=== PATIENT | male | born 2000 | race Caucasian/White ===

== ENCOUNTER 2025-04-04 13:10 | Emergency (ER) | payer BC, SELFPAY ==
[2025-04-04 13:19] VITALS: BP 143/93; PULSE 59; RESP 16; TEMP 36.5; O2SAT 100; BMI 31.8
--- OUTSIDE RECORDS SUMMARY | 2025-04-04 13:22 | XMS_ITS | Encounter Summary ---
Author Organization [facility] Address [address] [place] [address] Care Team Providers Care Folder And Notcher Name Role Phone Reynold Alvarado PA-C Primary Care Provider + Sunil Arango MD Unavailable [phone] Reason for Visit * Reason Onset Date Comments Other 03/18/2020 Appointment issu es Encounter Details Date Type Department Care Team (Late st Contact Info) Description 03/18/2020 Telephone [facility] [address] [place] [address] Reynold Alvarado PA-C [address] [place] [address] Other (Appointment issues) Social History Tobacco Use Types Packs/Day Years Used Date Smoking Tobacco: Passive Smo ke Exposure - Never Smoker Smokeless Tobacco: Never Alcohol Use Standard Drinks/Week Comments No 0 (1 standard drink = 0.6 oz pur e alcohol) Sex and Gender Information Value Date Recorded Sex Assigned at Not on file Legal Sex Male 10:38 PM EST Gender Identity Not on file Sexual Orientation Not on file COVID-19 Exposure Response Date Recorded In the last month, have you been in contact with someone who was confirmed or suspected to have Coronavirus / COVID-19? No / Unsure 03/20/2020 2:42 PM EST documented as of this encounter Miscellaneous Notes * Telephone Encounter - Reynold Alvarado PA-C - 03/18/2020 9:55 PM EST Ok to schedule him on or Tuesday. * Telephone Encounter - Becca Ricci - 03/18/2020 5:32 PM EST Patient cannot reach office to schedule appointment. Please have front load trash truck driver reach out and schedule. [phone] Please advise documented in this encounter Plan of Treatment Not on file documented as of this encounter Visit Diagnoses Not on filedocumented in this encounter Additional Health Concerns Infection Onset Date Last Indicated Resolved Time Covid-19 (rule out) 03/30/2021 03/30/2021 04/13/19 22 10:12 PM EST documented as of this encounter Care Teams Folder And Notcher Relationship Specialty Start Date End Date Reynold Alvarado PA-C [address] [place] [address] PCP - General Physician Hook And Eye Attacher 12/15/17 01/28/25 Sunil Arango MD [address] [place], [place] [phone] Gastroenterology 05/08/19 documented as of this encounter
--- OUTSIDE RECORDS SUMMARY | 2025-04-04 13:22 | XMS_ITS | Encounter Summary ---
Author Organization [facility] Address [address] [place] [address] Care Team Providers Care Data Mining Analyst Name Role Phone Reynold Alvarado PA-C Primary Care Provider + Sunil Arango MD Unavailable [phone] Encounter Details Date Type Department Care Team (Late st Contact Info) Description 02/01/2019 Transcribe Orders Centralized Scheduling [address] [place] [address] Reynlod Alvarado PA-C [address] [place] [address] Social History Tobacco Use Types Packs/Day Years [...] on file Sexual Orientation Not on file documented as of this encounter Plan of Treatment Not on file documented as of this encounter Visit Diagnoses Not on filedocumented in this encounter Additional Health Concerns Infection Onset Date Last Indicated Resolved Time Covid-19 (rule out) 03/30/2021 03/30/2021 04/13/19 22 10:12 PM EST documented as of this encounter Care Teams Data Mining Analyst Relationship Specialty Start Date End Date Reynold Alvarado PA-C [address] [place], [place] [phone] PCP - General Physician Well Cleaner 12/15/17 01/28/25 Sunil Arango MD [address] [place] [phone] Gastroenterology 05/08/19 documented as of this encounter
--- OUTSIDE RECORDS SUMMARY | 2025-04-04 13:22 | XMS_ITS | Encounter Summary ---
Author Organization [facility] Address [address] [place] [address] Care Team Providers Care Sales Office Manager Name Role Phone Reynold Alvarado PA-C Primary Care Provider + Sunil Arango MD Unavailable Reason for Referral * Consultation (Routine) - Closed Specialty Diagnoses / Procedures Referred By Ben negrete Referred To Contact Gastroenterology Diagnoses Epigastric pain Functional diarrhea Gastroenteritis Jessie Ugalde MD Canty, Michael D., MD [address] [place] [address] Phone: tel: fax: Referral ID Status Reason Start Date Expiration Date Visits Re quested Visits Authorized [id number] Closed 03/20/2019 03/20/2020 1 1 Encounter Details Date Type Department Care Team (Latest Contact Info) Description 03/20/2019 Transcribe Orders [facility] [address] [place] [address] Jessie Ugalde MD Epigastric pain (Primary Dx); Functional diarrhea; Gastroenteritis Social History Tobacco Use Types Packs/Day Years [...] as of this encounter Plan of Treatment Scheduled Referrals Name Type Priority Associated Diagnoses Order Schedule Ambulatory referral to Gastroenterology Outpatient Referral Routine Epigastric pain Functional diarrhea Gastroenteritis Ordered: 03/20/2019 documented as of this encounter Visit Diagnoses Diagnosis Epigastric pain- Primary Abdominal pain, epigastric Functional diarrhea Gastroenteritis Other and unspecified noninfectious gastroenteritis and colitis documented in this encounter Additional Health Concerns Infection Onset Date Last Indicated Resolved Time Covid-19 (rule out) 03/30/2021 03/30/2021 04/13/19 10:12 PM EST documented as of this encounter Care Teams Sales Office Manager Relationship Specialty Start Date End Date Reynold Alvarado PA-C [address] [place] [address] PCP - General Physician Skirt Trimmer 12/15/17 01/28/25 Sunil Arango MD [address] [place] [phone] Gastroenterology 05/08/19 documented as of this encounter
--- OUTSIDE RECORDS SUMMARY | 2025-04-04 13:22 | XMS_ITS | Encounter Summary ---
Author Organization [facility] Address [address] [place] [address] Care Team Providers Care Flanger Name Role Phone Loyda Esparza DO Primary Care Provider Reynold Alvarado PA-C Primary Care Provider + Sunil Arango MD Unavailable [phone] Encounter Details Date Type Department Care Team (Late st Contact Info) Description 05/17/2007 Historical Encounter [facility] Roxana Lake MD [address] [place] [address] Social History Tobacco Use Types Packs/Day Years Used Date Smoking Tobacco: Never Assessed Sex and Gender Information Value Date Recorded [...] documented as of this encounter Care Teams Flanger Relationship Specialty Start Date End Date Loyda Esparza DO [address] [facility] [address] PCP - General 06/01/08 12/14/17 Reynold Alvarado PA-C [address] [place] [address] PCP - General Physician Strategic Development Manager 12/15/17 01/28/25 Sunil Arango MD [address] [place] [phone] Gastroenterology 05/08/19 documented as of this encounter
--- OUTSIDE RECORDS SUMMARY | 2025-04-04 13:22 | XMS_ITS | Encounter Summary ---
Author Organization [facility] Address [address] [place] [address] Care Team Providers Care Professor Of Communication Name Role Phone Reynold Alvarado PA-C Primary Care Provider + Sunil Arango MD Unavailable Encounter Details Date Type Department Care Team (Late st Contact Info) Description 01/22/2022 Orders Only [facility] Medicine [address] [place] [address] Reynold Alvarado PA-C [address] [place] [address] Hypothyroidism due to acquired atrophy of thyroid (Primary Dx) Social History Tobacco Use Types Packs/Day Years Used Date Smoking Tobacco: Never Smokeless Tobacco: Never Alcohol Use Standard Drinks/Week Comments No 0 (1 standard drink = 0.6 oz pur e alcohol) Sex and Gender Information Value Date Recorded Sex Assigned at Not on file Legal Sex Male 10:38 PM EST Gender Identity Not on file Sexual Orientation Not on file COVID-19 Exposure Response Date Recorded In the last 10 days, have yo u been in contact with someone who was confirmed or suspected to have Coronavirus/COVID-19? No / Unsure 01/15/2022 9:31 AM EDT documented as of this encounter Plan of Treatment Not on file documented as of this encounter Visit Diagnoses Diagnosis Hypothyroidism due to acquired atrophy of thyroid- Primary documented in this encounter Care Teams Professor Of Communication Relationship Specialty Start Date End Date Reynold Alvarado PA-C [facility] [place] [address] PCP - General Physician Bench Worker Helper 12/15/17 01/28/25 Sunil Arango MD [address] [place] [phone] Gastroenterology 05/08/19 documented as of this encounter
--- OUTSIDE RECORDS SUMMARY | 2025-04-04 13:22 | XMS_ITS | Encounter Summary ---
Author Organization [facility] Address [address] [place] [address] Care Team Providers Care [employer] Name Role Phone Reynold Alvarado PA-C Primary Care Provider + Sunil Arango MD Unavailable [phone] Encounter Details Date Type Department Care Team (Late st Contact Info) Description 01/31/2019 Transcribe Orders Centralized Scheduling [address] [place] [address] Priya Pabon RN Social History Tobacco Use Types Packs/Day Years [...] documented as of this encounter Care Teams [employer] Relationship Specialty Start Date End Date Reynold Alvarado PA-C [address] [place] [address] PCP - General Physician Instructional Design Manager 12/15/17 01/28/25 Sunil Arango MD [address] [place] [phone] Gastroenterology 05/08/19 documented as of this encounter
--- OUTSIDE RECORDS SUMMARY | 2025-04-04 13:22 | XMS_ITS | Encounter Summary ---
Author Organization [facility] Address [address] [place] [address] Care Team Providers Care Application Support Name Role Phone Loyda Esparza DO Primary Care Provider [phone] Reynold Alvarado PA-C Primary Care Provider + Sunil Arango MD Unavailable [phone] Encounter Details Date Type Department Care Team (Late st Contact Info) Description 05/12/2006 Historical Encounter Global Fazal Raymond, Mike Chandra MD [address], [place] [address] Social History Tobacco Use Types Packs/Day Years [...] documented as of this encounter Care Teams Application Support Relationship Specialty Start Date End Date Loyda Esparza DO [address] [place] [address] PCP - General 06/01/08 12/14/17 Reynold Alvarado PA-C [facility] [place] [address] PCP - General Physician Rate Marker 12/15/17 01/28/25 Sunil Arango MD [address] [place] [phone] Gastroenterology 05/08/19 documented as of this encounter
--- OUTSIDE RECORDS SUMMARY | 2025-04-04 13:22 | XMS_ITS | Encounter Summary ---
Author Organization [facility] Address [address] [place] [address] Care Team Providers Care Pill Maker Name Role Phone Reynold Alvarado PA-C Primary Care Provider + Sunil Arango MD Unavailable [phone] Reason for Visit * Reason Onset Date Comments Medication Problem 01/13/2021 Encounter Details Date Type Department Care Team (Late st Contact Info) Description 01/13/2021 Telephone [facility] Medicine [address] [place] [phone] Danielle Salcido MA Medication Problem Social History Tobacco Use Types Packs/Day Years [...] on file documented as of this encounter Miscellaneous Notes * Telephone Encounter - Reynold Alvarado PA-C - 01/13/2021 11:59 AM EDT noted * Telephone Encounter - Danielle Salcido MA - 01/13/2021 10:02 AM EDT Appointment scheduled on Tuesday 9 am. * Telephone Encounter - Reynold Alvarado PA-C - 01/13/2021 9:02 AM EDT Can see at 9 am on Tuesday. He has not been here since March and cancelled and did not reschedulehis September appointment. * Telephone Encounter - Danielle Salcido MA - 01/13/2021 8:56 AM EDT Patient's father called wanting to make him appointment to go over his anxiety medication. Patient states medication is working but its not working. Please advise. documented in this encounter Plan of Treatment Not on file documented as of this encounter Visit Diagnoses Not on filedocumented in this encounter Additional Health Concerns Infection Onset Date Last Indicated Resolved Time Covid-19 (rule out) 03/30/2021 03/30/2021 04/13/19 22 10:12 PM EST documented as of this encounter Care Teams Pill Maker Relationship Specialty Start Date End Date Reynold Alvarado PA-C [address] [place] [address] PCP - General Physician Table Tender 12/15/17 01/28/25 Sunil Arango MD [address] [place] [phone] Gastroenterology 05/08/19 documented as of this encounter
--- OUTSIDE RECORDS SUMMARY | 2025-04-04 13:22 | XMS_ITS | Encounter Summary ---
Author Organization [facility] Address [address] [place] [address] Care Team Providers Care Manager Graphic Name Role Phone Reynold Alvarado PA-C Primary Care Provider + Sunil Arango MD Unavailable [phone] Reason for Visit * Reason Onset Date Comments Medications Refill 11/14/2019 Encounter Details Date Type Department Care Team (Late st Contact Info) Description 11/14/[address] [facility] Medicine [address] [place] [address] Maged Abrams MA Medications Refill Social History Tobacco Use Types Packs/Day Years [...] Telephone Encounter - Reynold Alvarado PA-C - 11/14/2019 9:37 PM EDT done * Telephone Encounter - Maged Abrams MA - 11/14/2019 8:44 AM EDT Mother called for pt requesting refill on sertraline 25mg once daily. Pt has new insurance so need 90 day supply called to [facility]. documented in this encounter Plan of Treatment Not on file documented as of this encounter Visit Diagnoses Diagnosis Mood disorder- Primary Unspecified episodic mood disorder documented in this encounter Additional Health Concerns Infection Onset Date Last Indicated Resolved Time Covid-19 (rule out) 03/30/2021 03/30/2021 04/13/19 22 10:12 PM EST documented as of this encounter Care Teams Manager Graphic Relationship Specialty Start Date End Date Reynold Alvarado PA-C [address] [place] [address] PCP - General Physician Scholarship Counselor 12/15/17 01/28/25 Sunil Arango MD [address] [place] [phone] Gastroenterology 05/08/19 documented as of this encounter
--- OUTSIDE RECORDS SUMMARY | 2025-04-04 13:22 | XMS_ITS | Encounter Summary ---
Author Organization [facility] Address [address] [place] [address] Care Team Providers Care Return To Factory Clerk Name Role Phone Reynold Alvarado PA-C Primary Care Provider + Sunil Arango MD Unavailable [phone] Encounter Details Date Type Department Care Team (Latest Contact Info) Description 12/23/2018 Transcribe Orders X-ray [address] [place] [address] Reynold Alvarado PA-C [address] [place] [address] Ankle pain (Primary Dx) Social History Tobacco Use Types [...] on file documented as of this encounter Procedures Procedure Name Priority Date/Time Associated Diagnosis Comments XR ANKLE BILATERAL 3 VW OR MORE Routine 12/23/2018 12:48 PM EDT Ankle pain documented in this encounter Results * XR Ankle Bilateral 3 VW Or More (12/23/2018 12:48 PM EDT) Anatomical Region Laterality Modality leg, ankle, foot Computed Radiog dory 12/23/2018 Narrative 12/23/2018 12:56 [place] [address] Radiology PATIENT NAME: Stanford Ugalde MR#: [id number] PROCEDURE DATE: 12/23/2018 ROOM#: ORDERING PHYS: SELENE Nolasco Clinical history bilateral ankle pain status post trauma. Bilateral Ankle 3 Views There is no acute fracture, dislocation or destructive process. The visualized joint space appears unremarkable. No focal soft tissue abnormality. IMPRESSION: Negative study. This note is generated using voice recognition computer software. Inadverent errors may have occurred while dictating note. Common sense approach is appreciated. THIS IS AN ELECTRONICALLY VERIFIED REPORT 12/23/2018 12:56 PM: MD Lana Levy MD dd TD: 12/23/2018 JOB #: [id number] Radiology Page 1 of 1 COPY Procedure Note Lana Fernández MD - 12/23/2018 [place] [address] Radiology PATIENT NAME: Stanford Ugalde MR#: [id number] PROCEDURE DATE: 12/23/2018 ROOM#: ORDERING PHYS: SELENE Nolasco Clinical history bilateral ankle pain status post trauma. Bilateral Ankle 3 Views There is no acute fracture, dislocation or destructive process. The visualized joint space appears unremarkable. No focal soft tissue abnormality. IMPRESSION: Negative study. This note is generated using voice recognition computer software. Inadverent errors may have occurred while dictating note. Commonsense approach is appreciated. THIS IS AN ELECTRONICALLY VERIFIED REPORT 12/23/2018 12:56 PM: MD Lana Levy MD dd TD: 12/23/2018 JOB #: [id number] Radiology Page 1 of 1COPY Reynold Alvarado PA-C IM[facility] DIAGNOSTIC IMAGING O RDERABLES Final Result documented in this encounter Visit Diagnoses Diagnosis Ankle pain- Primary Pain in joint, ankle and foot documented in this encounter Additional Health Concerns Infection Onset Date Last Indicated Resolved Time Covid-19 (rule out) 03/30/2021 03/30/2021 04/13/19 22 10:12 PM EST documented as of this encounter Care Teams Return To Factory Clerk Relationship Specialty Start Date End Date Reynold Alvarado PA-C [address] [place] [address] PCP - General Physician Trim Machine Adjuster 12/15/17 01/28/25 Sunil Arango MD [address] [place] [phone] Gastroenterology 05/08/19 documented as of this encounter
--- OUTSIDE RECORDS SUMMARY | 2025-04-04 13:22 | XMS_ITS | Clinical Summary ---
Author Organization [facility] Address [address] [place] [address] Care Team Providers Care Medical Billing Manager Name Role Phone Sunil Arango MD Unavailable [phone] Allergies No known active allergies Medications ARIPiprazole (ABILIFY) 5 mgIndications:Mood disorder Take 1 Tablet by mouth Once Daily. 90 Tablet 1 2 Active buPROPion (WELLBUTRIN SR) 150 mg SR tabletIndications:Mo od disorder Take 1 Tablet by mouth Twice a day. 180 Tablet 1 2 Active levothyroxine (SYNTHROID) 25 mcg tabletIndications:Hy pothyroidism due to acquired atrophy of thyroid Take 1 Tablet by mouth Once Daily. 90 Tablet 1 2 Active brompheniramine-pseu doephedrine-DM (BROMFED DM) 2-30-10 mg/5 mLIndications:Acute nasopharyngitis Take 10 mL by mouth Every 6 hours as needed. 118 mL 3 Active ketorolac (TORADOL) 10 mg tabletIndications:Le ft foot pain,Closed nondisplaced fracture of first metatarsal bone of left foot, initial encounter Take 1 Tablet by mouth Every 8 hours as needed for Pain. 9 Tablet 5 Active Active Problems No known active problems Immunizations Immunization Administration Dates Next Due DTaP 06/22/2004, 4,2001,08/01,2001 Hepatitis A 2-dose 11/16/2017 Hepatitis B 03/28/2002,2001,2001 HiB 08/02/2011,03/28/2002,2001 IPV 06/22/2005, 2,2001,05/26 MMR 06/22/2005,2001 Meningococcal Conjugate 11/16/2017,11/15/2013 Moderna SARS-COV-2 Vaccinati on Full Dose 07/23/2020,06/25/2020 Tdap 11/15/2013 Varicella 08/17/2006,06/13/2003 pneumococcal CONJUGATE (13 VALENT) 03/28,01/25/2002,2001,08/01 Family History Medical History Relation Name Comments Arthritis-Rheumatoid Father Celiac Disease Father Other Father Essential tremo r Diabetes Mother Hypertension Mother Relation Name Status Comments Father Alive Mother Alive Other assessed [id number] Alive Social History Tobacco Use Types Packs/Day Years Used Date Smoking Tobacco: Never Smokeless Tobacco: Never Alcohol Use Standard Drinks/Week Comments No 0 (1 standard drink = 0.6 oz pur e alcohol) Sex and Gender Information Value Date Recorded Sex Assigned at Not on file Legal Sex Male 10:38 PM EST Gender Identity Not on file Sexual Orientation Not on file Last Filed Vital Signs Vital Sign Reading Time Taken Comments Blood Pressure 156/83 04/30/2024 3:06 PM EST Pulse 80 04/30/2024 3:04 PM EST Temperature 36.7 C (98.1 F) 04/30/2024 3:04 PM EST Respiratory Rate 16 04/30/2024 3:04 PM EST Oxygen Saturation 100% 04/30/2024 3:04 PM EST Inhaled Oxygen Concentration - - Weight 148.3 kg (327 lb) 04/30/2024 3:04 PM EST Height 185.4 cm (6' 1 ) 06/22/2022 7:59 PM EDT Body Mass Index 43.14 06/22/2022 7:59 PM EDT Plan of Treatment Health Maintenance Due Date Last Done Comments HEP C SCREENING 2001 HEP A VACCINE (2 of 2 - 2-dose series) 05/19/2018 11/16/2017 ANNUAL WELLNESS EXAM 01/16/2023 01/15/2022, 01/18/20 DTAP/TDAP/TD VACCINE (7 - Td or Tdap) 11/16/2023 11/15/2013, 06/22/2005, 06/22/2004, Additional history exists COVID-19 Vaccine ( season) 2024 07/23/2020, 06/25/2020 INFLUENZA VACCINE (#1) 2024 HIB VACCINE Completed 08/02/2011, 03/11, 03/28/2002, Additional history exists ROTOVIRUS VACCINE Aged Out No longer eligible based on patient's age to complete this topic Insurance Care Teams Medical Billing Manager Relationship Specialty Start Date End Date Sunil Arango MD [address] [place] [phone] Gastroenterology 05/08/19
--- OUTSIDE RECORDS SUMMARY | 2025-04-04 13:22 | XMS_ITS | Encounter Summary ---
Author Organization [facility] Address [address] [place] [address] Care Team Providers Care Tray Delivery Aide Name Role Phone Loyda Esparza DO Primary Care Provider [phone] Reynold Alvarado PA-C Primary Care Provider + Sunil Arango MD Unavailable [phone] Encounter Details Date Type Department Care Team (Late st Contact Info) Description 2001 Historical Encounter [place], [place] Social History Tobacco Use Types Packs/Day Years [...] documented as of this encounter Care Teams Tray Delivery Aide Relationship Specialty Start Date End Date Loyda Esparza DO [address] [facility] [place] [address] PCP - General 06/01/08 12/14/17 Reynold Alvarado PA-C [facility] [place] [address] PCP - General Physician Bilingual Executive Assistant 12/15/17 01/28/25 Sunil Arango MD [address] [place], [place] [phone] Gastroenterology 05/08/19 documented as of this encounter
--- OUTSIDE RECORDS SUMMARY | 2025-04-04 13:22 | XMS_ITS | Clinical Summary ---
Author Organization [facility] Address [address] [place] [address] Care Team Providers Care Retrieval Specialist Name Role Phone Maged Kennedy MD Primary Care Provider Brenda vailable Social History Tobacco Use Types Packs/Day Years Used Date Smoking Tobacco: Never Assessed Sex and Gender Information Value Date Recorded Sex Assigned at Not on file Legal Sex Male 2:21 PM EST Gender Identity Not on file Sexual Orientation Not on file Plan of Treatment Upcoming Encounters Date Type Department Care Team (Late st Contact Info) Description 06/20/2025 9:30 AM EDT Consult [place] [facility] [address] [place] [address] Ruddy Fox MD [address] [place] [address] Health Maintenance Due Date Last Done Comments [facility]-Depression Screening 2001 [facility]-HIV Screening 2001 [facility]-Hepatitis C Screening 2001 [facility]-/Child/Adol SDOH Screenings 2001 HPV Vaccines (1 - Male 3-dose series) 2016 [facility]- SDOH Screenings 2019 [facility]-Adult SDOH Screenings 2019 [facility]-DTaP,Tdap,and Td Vaccines (7 - Td or Tdap) 11/16/2023 11/15/2013, 06/22/2005, 06/13/2003, Additional history exists [id number] Vaccine ( season) 2024 07/23/2020, 06/25/2020 [facility]-Influenza Vaccine (#1) 2024 [facility]-Zoster Vaccines (1 of 2) 2051 08/17/2006, 06/13/2003 [facility]-HIB Vaccines Completed 03/28/2002, , 2001 [facility]-Hepatitis B Vaccines Completed 002, 2001, 2001 [facility]-IPV Vaccines Aged Out 06/22/2005, , 2001, Additional history exists No longer eligible based on patient's age to complete this topic [facility]-Varicella Vaccines Completed 08/17/2006, 2003 [facility]-Hepatitis A Vaccines Aged Out No longer eligible based on patient's age to complete this topic [facility]-Pneumococcal Vaccine: Pediatrics (0 to 5 Years) and At-Risk Patients (6 to 49 Years) Aged Out No longer eligible based on patient's age to complete this topic [facility]-Rotavirus Vaccines Aged Out No lo nger eligible based on patient's age to complete this topic Insurance Care Teams Retrieval Specialist Relationship Specialty Start Date End Date Maged Kennedy MD PCP - General Family Medicine 04/01/25
[2025-04-04 13:30] VITALS: BP 116/76; PULSE 85; O2SAT 98
--- NOTE | 2025-04-04 13:35 | CT_ITS ---
PROCEDURE INFORMATION: Exam: CT Head Without Contrast Exam date and time: 04/04/2025 1:44 PM Age: 25 years old Clinical indication: Pain; Headache; Additional info: Syncope, HAWLEY TECHNIQUE: Imaging protocol: Computed tomography of the head without contrast. Radiation optimization: All CT scans at this facility use at least one of these dose optimization techniques: automated exposure control; mA and/or kV adjustment per patient size (includes targeted exams where dose is matched to clinical indication); or iterative reconstruction. COMPARISON: No relevant prior studies available. FINDINGS: Limitations: streak artifact somewhat limits evaluation. Brain: No acute hemorrhage, edema, or mass effect. Cerebral ventricles: No hydrocephalus. Pituitary gland and sella: The pituitary gland is flattened, nonspecific. Suggestion of an 8 mm cystic sellar lesion (series 1002, image 32; series 5, image 60). Paranasal sinuses: The paranasal sinuses are clear. Mastoid air cells: The visualized tympanomastoid cavities are clear. Bones: Unremarkable. No acute fracture. Soft tissues: Unremarkable. IMPRESSION: 1. No acute hemorrhage, edema, or mass effect. 2. Question cystic sellar lesion. Recommend pituitary protocol MRI for further evaluation.
--- NOTE | 2025-04-04 13:37 | ED_ITS ---
<Statement entered by Vasquez Ma MD - 04/04/25 15:08> Vasquez Ma MD: I was consulted by the SILVINA, and we discussed the complexity of the problems being addressed. I approved the treatment and management plan for this patient's care in the emergency department, thus performing a substantive portion of the medical decision making. Discharge Plan Disposition Patient Disposition: Home, Self-Care Prescriptions Prescriptions: No Action nystatin 100,000 unit/gram cream 1 applic topical DAILY Qty: 60 10RF Referrals Follow up/Referrals: Maged Kennedy MD [Primary Care Provider, Internal Medicine] - See instructions Activity Restrictions/Add. Instructions Additional Instructions/Restrictions: You were seen in the emergency room today with reports of syncope. You likely experienced an event that is called vasovagal syncope. Your CT of the head showed a questionable cystic mass near your pituitary gland. You should follow- up with your primary care provider and get an MRI of your brain. Please follow- up with your primary care provider in the next week. Clinical Impressions Clinical Impression: Vasovagal syncope Instructions Patient Instructions: DI for Syncope in Adults (Fainting), DI for Syncope in Children (Fainting) Print Language Print Language: Pakistani Discharge ED Provider: Vasquez Ma General Adult HPI <Nicol Giron, KAITLIN - Last Filed: 04/04/25 14:45> General Chief complaint: Syncope Stated complaint: AO 04/03 & 04/04 Syncope, Fall Hit Head Time Seen by Provider: 04/04/25 13:14 Mode of Arrival: Ambulatory Source of Information: Patient Description of Symptoms (Recalled from ER Triage Doc. by RN): patient states he passed out twice at 4am after getting a migraine. he reports he vomited as well. hit his head on the door and floor. has pain in back of head. History of Present Illness HPI narrative: Stanford Ugalde is a 25-year-old male past medical history significant for migraines who presents emergency room tonight with complaints of syncope. Mr. Ugalde went to bed yesterday evening with a migraine headache. States that he woke up at approximately 4 AM this morning and got up to use the bathroom, while he was in the bathroom, he had a syncopal episode. Apparently when he went to get up from the bathroom floor, he had another syncopal episode, reports an episode of bowel or bladder incontinence. Was able to return to bed and went back to sleep. Decided to come be evaluated when he woke up at about 1:00 this afternoon. Denies any unilateral weakness, numbness, tingling. No slurred speech, no facial droop. No history of seizure disorder. No history of DVT or PE, no cardiac arrhythmias. No familial history of sudden cardiac . No recent travel, no known sick contacts. Is also reporting some mild nonspecific abdominal discomfort that started about an hour ago. No vomiting or diarrhea. No dysuria or hematuria. Does not take any blood thinners. Please note that the above description of symptoms, and this electronic medical record under categorization of recalled from ER triage doctor by RN are reflective of an initial nursing assessment, however, is not reflective of my full history and physical exam that was personally taken and clarified. Consequentially, this proceeding description of symptoms, which may include the patient's cauterized chief complaint in the EMR, do not reflect my personal clinical impression, and the ultimate description of the history of present illness stated complaints should be deferred to this section of this note. Unless stated otherwise were congruent with the section of the note, additional signs, symptoms, or incongruence can be interpreted as in or accurate with my clinical impression. Related Data Previous Rx's ?Medication ?Instructions ?Recorded nystatin 100,000 unit/gram topical 1 applic topical DA WENDY yeast 03/28/25 cream dermatitis #60 grams Allergies Allergy/AdvReac Type Severity Reaction Status Date / Time No Known Allergies Allergy Verified 03/27/25 10:56 [facility] <Nicol Giron APRN - Last Filed: 04/04/25 14:45> [facility] Disclaimer: The information contained in this section may have been updated after the patient was seen, as this information can be updated by other users. Medical History (Updated 04/04/25 @ 14:39 by Nicol Giron APRN) Anxiety and depression Surgical History (Updated 03/27/25 @ 10:58 by Nasrin Mckinney MA) No history of previous surgery Family History (Updated 03/27/25 @ 10:58 by Nasrin Mckinney MA) Mother Diabetes Social History (Updated 03/27/25 @ 10:58 by Nasrin Mckinney MA) Smoking Status: Light tobacco smoker alcohol intake: never current occupational status: employed Travel in the last 8 weeks?: None Have you lived/traveled outside [place] in past 30 days?: No Contact w/someone who lives/traveled outside US past 30 days?: No Exposure to someone with infectious disease in past 14 days?: No Do you have a fever (greater than 100.4 F or 38 C)?: No Have you tested positive for COVID-19?: No Exposed to someone with COVID-19 in past 14 days?: No Do you have a sore throat?: No Do you have a cough?: No Do you have any weakness?: No Do you have any diarrhea?: No Are you experiencing any unusual bleeding?: No Do you have any muscle aches/pain?: No Do you have any abdominal pain?: No Are you experiencing loss of taste or smell?: No <Nicol Giron APRN - Last Filed: 04/04/25 14:45> ROS Obtained: Yes All systems reviewed & no additional complaints except as documented Physical Exam <Nicol Giron VACUUM REPAIRER - Last Filed: 04/04/25 14:45> General General appearance: alert and in no apparent distress Head Head exam: atraumatic, normocephalic and normal inspection Eye Eye exam: Present normal appearance, PERRL and EOMI ENT ENT exam: Present normal exam, normal oropharynx, mucous membranes moist, TM's normal bilaterally and normal external ear exam Neck Neck exam: Present normal inspection, full ROM and trachea midline; Absent meningismus or lymphadenopathy Chest Chest inspection: Present normal inspection and symmetric chest wall rise; Absent tenderness Respiratory Respiratory exam: Present normal lung sounds bilaterally; Absent respiratory distress Cardiovascular Cardiovascular exam: Present regular rate and normal rhythm; Absent JVD Abdominal Exam Abdominal exam: Present soft and normal bowel sounds; Absent distention, tenderness or guarding Extremities Exam Extremities exam: Present normal inspection, full ROM and normal capillary refill; Absent calf tenderness Back Exam Back exam: Present normal inspection; Absent tenderness Neurological Exam Neurological exam: Present alert and oriented X3 Psychiatric Psychiatric exam: Present normal affect and normal mood Skin Skin exam: Present warm, dry, intact and normal color Lymphatic Lymphatic Findings: no adenopathy Medical Decision Making <Nicol Giron APRN - Last Filed: 04/04/25 14:45> Medical Records Screening: Per USPSTF and CDC recommendations, given the prevalence of disease in our region, it is our hospital?s policy to screen for HIV and viral Hepatitis for all patients aged 18 and over and those with ongoing risk factors. Clint Inquiry Pt receiving controlled substance: No Vital Signs: 04/04/25 13:19 04/04/25 13:30 04/04/25 14:35 Temperature 97.7 F Temperature Source Oral Pulse Rate 85 Pulse Rate [Right Radial] 59 L Respiratory Rate 16 Blood Pressure 116/76 Blood Pressure [Orthostatic Lying Right Arm] 120/64 Blood Pressure [Orthostatic Sitting Right Arm] 128/63 Blood Pressure [Orthostatic Standing Right Arm] 124/71 Blood Pressure [Right Arm] 143/93 H Blood Pressure Mean [Right Arm] 109 Blood Pressure Source [Right Arm] Automatic Cuff Blood Pressure Position [Right Arm] Supine 02 Sat by Pulse Oximetry 100 98 Oxygen Delivery Method Room Air Lab Data Lab Results 04/04/25 13:26: WBC 10.3, RBC 5.39, Hgb 14.7, Hct 45.0, MCV 83.5, MCH 27.3, MCHC 32.7, RDW 13.6, Plt Count 185, MPV 13.8 H, Neut % (Auto) 84.8 H, Lymph % (Auto) 7.6 L, [place] % (Auto) 7.0, Eos % (Auto) 0.0 L, Baso % (Auto) 0.2, Neut # (Auto) 8.8 H, Lymph # (Auto) 0.8, [place] # (Auto) 0.7, Eos # (Auto) 0.0, Baso # (Auto) 0.0, Sodium 135 L, Potassium 4.3, Chloride 104, Carbon Dioxide 22, Anion Gap 13.3, BUN 15, Creatinine 0.80, Estimated Creat Clear 215, Estimated GFR 119, Est GFR ( Amer) 144, Glucose 85, Calcium 8.9, Magnesium 2.1, Total Bilirubin 1.0, AST 33, ALT 17, Alkaline Phosphatase 69, Troponin I < 0.01, Total Protein 7.2, Albumin 4.4, Globulin 2.8, Albumin/Globulin Ratio 1.6, Lipase 44 04/04/25 13:26 04/04/25 13:26 Orders (Tests/Meds): ED MEDICATIONS Generic Name Dose Route Start Last Admin Trade Name Freq PRN Reason Stop Dose Admin Sodium Chloride 1,000 mls @ 999 mls/hr 04/04/25 13:42 04/04/25 13:53 Sod Chlor 0.9% 1000ml Bag IV 04/04/25 14:42 999 mls/hr .Q1H1M ONE Administration ORDERS Category Date Time Status CT head/brain wo con Stat Cat Scan 04/04/25 13:35 Completed CBC w/Auto Diff [Complete Blood Count Auto Diff] Stat Lab 04/04/25 13:26 Completed CMP [Comprehensive Metabolic Panel] Stat Lab 04/04/25 13:26 Completed HIV Combo Stat Lab 04/04/25 13:26 Received Hepatitis C Ab Qual. W/ RFX Stat Lab 04/04/25 13:26 Received Lipase Stat Lab 04/04/25 13:26 Completed MAG [Magnesium] Stat Lab 04/04/25 13:26 Completed Trop I [Troponin I] Stat Lab 04/04/25 13:26 Completed Troponin I Q3H Lab 04/04/25 16:45 Ordered Troponin I Q3H Lab 04/04/25 19:45 Ordered ECG Request Stat Y 04/04/25 13:42 Ordered Medical Decision Narrative: In summary patient is an 25-year-old male who presents emergency department for evaluation of syncope. Patient reports he went to bed last night with a migraine, got up at around 3-4 o'clock this morning and had 2 syncopal events. Does report bowel and bladder incontinence during 1 event. No seizure disorder. No migraine at this time anymore. Is complaining of some mild pain in the back of his head, thinks he hit his head when he passed out. No dizziness, lightheadedness, blurry or double vision. No unilateral weakness, numbness, tingling. No history of seizure disorder. Patient unsure of how long he was out for. Has had an episode of syncope in the past. Patient is hemodynamically stable upon arrival, afebrile. Unremarkable nonfocal physical exam. GCS 15, 5/5 strength in all extremities. Differential diagnosis includes vasovagal episode, cardiac arrhythmia, CVA. Initial workup will be conducted with hematologic labs, CT of the head without contrast, EKG. Initial interventions include crystalloid bolus with 1 L of saline. Initial workup reviewed by me hematologic labs essentially unremarkable. CT of the head nonactionable, did show a questionable cystic mass near his pituitary gland. Orthostatic vital signs were within normal limits. Patient able to walk, not experiencing any dizziness, lightheadedness, blurry or double vision. EKG without ST elevation. Upon repeat evaluation patient had resolution of his head pain, no headache/migraine symptoms since yesterday evening prior to going to bed. Given this patient is appropriate for discharge at this time. I instructed him that he likely had a vasovagal syncope event. Has had this in the past 1 time. Patient has not had any blurry or double vision. No dizziness or lightheadedness. Was able to walk without any symptoms or issues. I explained the patient that he needs to follow-up with his primary care provider regarding this questionable cystic mass near his pituitary gland. He is planning on seeing Dr. Kennedy in the next week anyways. I instructed him to return to the ER should he experience any vision changes. He was given return precautions to the ER. <Vasquez Ma MD - Last Filed: 04/04/25 14:26> Vital Signs: 04/04/25 13:19 04/04/25 13:30 04/04/25 14:35 Temperature 97.7 F Temperature Source Oral Pulse Rate 85 Pulse Rate [Right Radial] 59 L Respiratory Rate 16 Blood Pressure 116/76 Blood Pressure [Orthostatic Lying Right Arm] 120/64 Blood Pressure [Orthostatic Sitting Right Arm] 128/63 Blood Pressure [Orthostatic Standing Right Arm] 124/71 Blood Pressure [Right Arm] 143/93 H Blood Pressure Mean [Right Arm] 109 Blood Pressure Source [Right Arm] Automatic Cuff Blood Pressure Position [Right Arm] Supine 02 Sat by Pulse Oximetry 100 98 Oxygen Delivery Method Room Air Lab Data Lab Results 04/04/25 13:26: WBC 10.3, RBC 5.39, Hgb 14.7, Hct 45.0, MCV 83.5, MCH 27.3, MCHC 32.7, RDW 13.6, Plt Count 185, MPV 13.8 H, Neut % (Auto) 84.8 H, Lymph % (Auto) 7.6 L, [place] % (Auto) 7.0, Eos % (Auto) 0.0 L, Baso % (Auto) 0.2, Neut # (Auto) 8.8 H, Lymph # (Auto) 0.8, [place] # (Auto) 0.7, Eos # (Auto) 0.0, Baso # (Auto) 0.0, Sodium 135 L, Potassium 4.3, Chloride 104, Carbon Dioxide 22, Anion Gap 13.3, BUN 15, Creatinine 0.80, Estimated Creat Clear 215, Estimated GFR 119, Est GFR ( Amer) 144, Glucose 85, Calcium 8.9, Magnesium 2.1, Total Bilirubin 1.0, AST 33, ALT 17, Alkaline Phosphatase 69, Troponin I < 0.01, Total Protein 7.2, Albumin 4.4, Globulin 2.8, Albumin/Globulin Ratio 1.6, Lipase 44 Orders (Tests/Meds): ED MEDICATIONS Generic Name Dose Route Start Last Admin Trade Name Freq PRN Reason Stop Dose Admin Sodium Chloride 1,000 mls @ 999 mls/hr 04/04/25 13:42 04/04/25 13:53 Sod Chlor 0.9% 1000ml Bag IV 04/04/25 14:42 999 mls/hr .Q1H1M ONE Administration ORDERS Category Date Time Status CT head/brain wo con Stat Cat Scan 04/04/25 13:35 Completed CBC w/Auto Diff [Complete Blood Count Auto Diff] Stat Lab 04/04/25 13:26 Completed CMP [Comprehensive Metabolic Panel] Stat Lab 04/04/25 13:26 Completed HIV Combo Stat Lab 04/04/25 13:26 Received Hepatitis C Ab Qual. W/ RFX Stat Lab 04/04/25 13:26 Received Lipase Stat Lab 04/04/25 13:26 Completed MAG [Magnesium] Stat Lab 04/04/25 13:26 Completed Trop I [Troponin I] Stat Lab 04/04/25 13:26 Completed Troponin I Q3H Lab 04/04/25 16:45 Ordered Troponin I Q3H Lab 04/04/25 19:45 Ordered ECG Request Stat Y 04/04/25 13:42 Ordered ECG Data Tracing #1: Independently interpreted by me rate is 62, rhythm is largely regular with intermittent irregularity, sinus arrhythmia, no ST elevation in anatomical contiguous leads, QTc 388. No high degree AV block no dagger waves in the lateral leads. Critical Care <Nicol Giron, VACUUM REPAIRER - Last Filed: 04/04/25 14:45> Critical Care Time Critical Care Time: No
[2025-04-04 13:53] LABS: Magnesium 2.1 mg/dl (1.6-2.3)
[2025-04-04] MEDS: 0.9 % SODIUM CHLORIDE 1000ML 1,000 ML 999 ML IV (13:53)
[2025-04-04 14:03] LABS: Hematocrit 45.0 % (42.0-52.0); Hemoglobin 14.7 g/dL (14.1-18.0); Immature Granulocytes % 0.4 %; Mean Corpuscular HGB Conc 32.7 g/dL (31.8-35.4); Mean Corpuscular Hemoglobin 27.3 pg (27.0-31.2); Mean Corpuscular Volume 83.5 fl (80-94); Nucleated Red Blood Cells % 0 %; Platelet Count 185 K/mm3 (142-424); Red Blood Count 5.39 M/mm3 (4.60-6.20); Red Cell Distribution Width-SD 41.1 fL; White Blood Count 10.3 K/mm3 (4.8-10.8)
--- NOTE | 2025-04-04 14:05 | ECG_ITS ---
APPROVED REPORT Exam: Resting ECG HR:62 bpm ECG Measurements Heart Rate 62 AXES NV 146 P 42 QRSd 89 QRS 71 QT 382 T 64 QTc 388 Conclusion SINUS RHYTHM WITH SINUS ARRHYTHMIA NORMAL ECG Electronically signed by : JIMBO MONTERROSO, 04/06/2025 09:30:46
[2025-04-04 14:17] LABS: Albumin Level 4.4 g/dl (3.5-5.0); Blood Urea Nitrogen 15 mg/dl (9-20); Chloride 104 mmol/L (98-107); Creatinine Clearance Estimated 215 mL/min (50-200); Creatinine,Serum 0.80 mg/dl (0.66-1.25); Estimated Glomerular Filt Rate 119 ml/min (>60); GFR (African American) 144 ML/MIN (>60); Potassium 4.3 mmoL/L (3.5-5.1); Sodium 135 mmol/L (136-145)
[2025-04-04 14:18] LABS: Alanine Aminotransferase 17 U/L (12-78); Albumin/Globulin Ratio 1.6 (1.1-1.8); Alkaline Phosphatase 69 U/L (38-126); Anion Gap 13.3 mEq/L (5-15); Aspartate Amino Transferase 33 U/L (17-59); Bilirubin,Total 1.0 mg/dl (0.2-1.3); Calcium 8.9 mg/dl (8.4-10.2); Carbon Dioxide 22 mmol/L (22.0-30.0); Globulin 2.8 g/dL (1.3-3.2); Glucose 85 mg/dl (74-100); Lipase 44 U/L (23-300); Total Protein,Serum 7.2 g/dl (6.3-8.2)
[2025-04-04 14:30] LABS: Troponin I < 0.01 ng/ml (0.00-0.034)
[2025-04-04 14:35] VITALS: BP 120/64; BP 124/71; BP 128/63
[2025-04-04 14:49] VITALS: BP 124/71; PULSE 64; RESP 18; TEMP 36.7; O2SAT 99
[2025-04-04 15:24] LABS: Hepatitis C Ab Qual. W/ RFX NEGATIVE (Negative)
== END 2025-04-04 14:50 | disposition home or self-care (01) ==
PROVIDERS: Nurse Practitioner Acute Care; Emergency Provider Emergency Medicine; PCP Family Medicine
DX: R55 Syncope and collapse (principal); R11.10 Vomiting, unspecified; S09.90XA Unspecified injury of head, initial encounter; W22.09XA Striking against other stationary object, initial encounter; Y92.002 Bathroom of unspecified non-institutional (private) residence as the place of occurrence of the external cause; R10.9 Unspecified abdominal pain; R22.0 Localized swelling, mass and lump, head; F32.A Depression, unspecified; F17.200 Nicotine dependence, unspecified, uncomplicated
CPT/HCPCS: 70450; 80053; 83690; 83735; 84484; 85025; 86803; 87389; 93005; 96360; 99284; 99285; J7030